=== PATIENT | female | born 1995 | race Two or more races ===

== ENCOUNTER 2020-12-21 15:39 | Emergency (ER) | payer SELFPAY ==
[~2020-12-21] VITALS: Ht 167.6 cm; Wt 89.8 kg
[2020-12-21 16:42] VITALS: BP 137/89
== END 2020-12-21 17:53 | disposition home or self-care (01) ==
LOC: ER 15:39
DX: H61.22 Impacted cerumen, left ear (principal); H66.92 Otitis media, unspecified, left ear
CPT/HCPCS: 69209